=== PATIENT | female | born 1975 | race Native Hawaiian/Other Pacific Islander ===

== ENCOUNTER 2016-06-10 22:34 | Inpatient (IN) | payer OTHER ==
[~2016-06-10] VITALS: Ht 157.5 cm; Wt 58.1 kg
[2016-06-10] MEDS ORDERED: HUMALOG100 MG/ML SC (22:47)
[2016-06-10 22:49] VITALS: BP 121/61; TEMP 99.5
[2016-06-11] VITALS (23 sets, daily range): BP systolic 82–120; BP diastolic 44–72; TEMP 97.4–98.9; Ht 157.5 cm; Wt 58.1 kg
[2016-06-11 00:12] LABS: PLATELET COUNT 476 K/uL (152-353)
[2016-06-11 00:22] LABS: POTASSIUM 3.9 mmol/L (3.6-5.2); SODIUM 135 mmol/L (136-145)
[2016-06-11 02:31] LABS: POTASSIUM 3.7 mmol/L (3.6-5.2); SODIUM 139 mmol/L (136-145)
--- NOTE | 2016-06-11 03:15 | NUR ---
RECEIVED 41 Y/O FEMALE FROM ER VIA W/C WITH SL RT RA. PT. PRESENTED TO ER N/V AND PAIN ALL OVER. 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 PUMP BEING CARRIED HOME. PT. ORIENTED TO ICU, AND BATHROOM.
--- NOTE | 2016-06-11 04:50 | NUR ---
DR. HOLLIDAY NOTIFIED AND INFORMED HIM OF NEW ADMISSION, WENT OVEER THE ORDERS, AND TOLD HIM PT. STILL N/V. PT HAD ZOFRAN 4MG AROUND October I REPEAT THE ZOFRAN 4MG X1 IV AND HE ORDERED ZOFRAN 4MG IV X1 NOW.
[2016-06-11 05:02] LABS: POTASSIUM 3.5 mmol/L (3.6-5.2); SODIUM 139 mmol/L (136-145)
--- NOTE | 2016-06-11 05:30 | NUR ---
ASSIST PT TO BR AND VOIDED 450ML AND CARRIED URINE FOR KETONES.
--- NOTE | 2016-06-11 07:30 | NUR ---
FSBS 193,DR MCMAHAN HERE, NEW ORDERS. INSULIN DRIP STOPPED, IV FLUIDS CHANGEDTO NS AT 150/HR AT 0743,INSULI 10 U HUMALOG SQ GIVEN AT [address]S ORDER.
[2016-06-11 07:54] LABS: POTASSIUM 3.3 mmol/L (3.6-5.2); SODIUM 135 mmol/L (136-145)
[2016-06-11 08:08] LABS: PLATELET COUNT 465 K/uL (152-353)
--- NOTE | 2016-06-11 08:45 | NUR ---
REPORT FROM PM STAFF. PT RESTING WITH EYES CLOSED. FAMILY AT BS.
[2016-06-11] MEDS ORDERED: BYSTOLIC5 MG PO (09:56)
[2016-06-11] MEDS ORDERED: DULO60CA2 OR (09:57)
--- NOTE | 2016-06-11 10:20 | NUR ---
FSBS 58, PT GIVEN JUICE & GINGERALE PO FAMILY AT BS.
--- NOTE | 2016-06-11 11:38 | NUR ---
PT TUP TO BATHROOM,VOID & UA TO LAB FOR KETONES.
--- NOTE | 2016-06-11 13:12 | NUR ---
PT RESTING QUIETLY. BS, UP TO 103. PT REMAINS 'WEAK'. DR LANG IN TO VISIT. NEW ORDERS, NS INCREASED TO 250 ML/HG.
--- NOTE | 2016-06-11 14:00 | NUR ---
INSULIN PUMP STOPPED PER ORDER DR LANG. PT RESTING WITH EYES CLOSED.
--- NOTE | 2016-06-11 15:28 | NUR ---
LABS DRAWN & TO LAB. PT UP TO BATHROOM TO VOID. FAMILY AT BS.
--- NOTE | 2016-06-11 16:07 | NUR ---
PT C/O NAUSEA AFTER GOING TO BATHROOM TO VOID. MEDICAYED WITH ZOFRAN 4 MG SIVP GIVEN PER ORDER.
[2016-06-11 16:18] LABS: POTASSIUM 3.9 mmol/L (3.6-5.2); SODIUM 134 mmol/L (136-145)
--- NOTE | 2016-06-11 16:28 | NUR ---
LABS CALLED TO GILBERTO PATTEN RN/MAYA/ DR LANG.
--- NOTE | 2016-06-11 16:54 | NUR ---
PT NAUSEATED & VOMITED SM AMT CL LIQUIDS. DR LANG NOTIFIED.
--- NOTE | 2016-06-11 17:30 | NUR ---
FENTANYL PATCHED REMOVED FROM PT'S BACK PER DR'S ORDERS.
--- NOTE | 2016-06-11 17:38 | NUR ---
PT VOMITED AGAIN SM AMT. PT MEDICATED WITH PHENERAGN IVPB PER DR'S ORDER.
--- NOTE | 2016-06-11 17:43 | NUR ---
FSBS 260, PT REFUSED FULL DOSE SS HUMALOG. PT ALLOWED 4 U SS HUMALOG TO BE GIVEN, PT STATES,'I DROP TOO FAST& I FEEL TERRIBLE'.
--- NOTE | 2016-06-11 18:15 | NUR ---
EDGARDO OBTAINED FROM [facility] TO ENTER PHARMACY TO REMOVE MEDS FOR K+ & PHOSPHORUS DRIPS. CHARGE NURSE GRAY PENALOZA NOTIFIED.
--- NOTE | 2016-06-11 18:33 | NUR ---
PT RESTING ON R SIDE EYES CLOSED, HOB UP.
--- NOTE | 2016-06-11 19:21 | NUR ---
K+ DRIP & K+PHOS DRIP OBTAINED FROM PHAMACY & MIXED. NEITHER WOULD SCAN,PT & MED VERIFIED.
--- NOTE | 2016-06-11 22:05 | NUR ---
PT RESTING QUIETLY. NO N/V NOTED. RECEIVING K PHOS INFUSION AT 41.6 ML/HR VIA PUMP. RECEIVING POTASSIUM 40MG IN 500 ML INFUSING AT 125 ML/HR. PT WITH HEART RATE OF 105. MONITORING PT'S BLOOD SUGAR.
[2016-06-12] VITALS (21 sets, daily range): BP systolic 80–130; BP diastolic 50–75; TEMP 97.2–99.3
--- NOTE | 2016-06-12 00:50 | NUR ---
UNABLE TO TOLERATE TYLENOL 650. STARTED VOMITING CLEAR LIQUIDS UP.
--- NOTE | 2016-06-12 00:58 | NUR ---
PT WAS MEDICATED WITH PHENERGAN 25MG IVPB IN 50 ML OF NS.
--- NOTE | 2016-06-12 04:22 | NUR ---
PT SITTING UP HF. DRY HEAVING. STILL WITH COMPLAINTS OF A HEADACHE. CHANGED IV TUBING AND HUNG NEW BAG OF 100O NS TO INFUSED AT 250 ML/HR. CM WITH SINUS TACH.
--- NOTE | 2016-06-12 05:29 | NUR ---
PT CONTINUES TO VOMIT UP LIQUID SECRETIONS. NS INFUSING AT 250 ML/HR. ZOFRAN 4 MG IVSP GIVEN. BLOOD SUGAR CHECKED.
--- NOTE | 2016-06-12 06:35 | NUR ---
PT UP OUT OF BED TO BATHROOM. LAB DIPESH BLOOD FOR AM LABS.
[2016-06-12 06:45] LABS: PLATELET COUNT 372 K/uL (152-353)
--- NOTE | 2016-06-12 07:00 | NUR ---
REPORT FROM PM STAFF. PT RESTING WITH EYES CLOSED,RR RATE 26,O2 SAT 100% ON RM AIR.
[2016-06-12 07:01] LABS: SODIUM 133 mmol/L (136-145)
--- NOTE | 2016-06-12 07:45 | NUR ---
JENNIFER MURILLO LPN/MAYA FOR DR LANG IN TO SEE PT. REPORTED LABS. PT C/O 'FEELING WEAK'.COLOR SL PALE.
--- NOTE | 2016-06-12 08:40 | NUR ---
DR LANG IN TO SEE PT,REVIEWED LABS,NEW ORDERS.PT USED BEDPAN B/C 'I FEEL WEAK'.
--- NOTE | 2016-06-12 08:48 | NUR ---
FLU SWAB COLLECTED & TO LAB.
--- NOTE | 2016-06-12 09:11 | NUR ---
FSBS,411,LAB NOTIFIED OF NEED FOR BS DRAW. FAMILY AT BS.
--- NOTE | 2016-06-12 09:18 | NUR ---
PT MEDICATED WOTH SODIUM BICARB [address] POWELL. LAB IN FOR BLOOD DRAW.RADIOLOGY IN FOR CXR.
--- NOTE | 2016-06-12 09:38 | NUR ---
DR LANG NOTIFIED OF PT'S BS & INSULIN GIVEN.
--- NOTE | 2016-06-12 09:54 | NUR ---
PT VOMITED X 1 SM AMT CL LIQUIDS.ASSISTED TO CHANGE GOWN.
--- NOTE | 2016-06-12 10:51 | NUR ---
PT MEDICATE FOR NAUSEA WITH PHENERGAN 25MG IVPB. PT VOMITED SM AMT CL LIQUID.
--- NOTE | 2016-06-12 11:49 | NUR ---
DR LANG BACK IN TO SEE PT. NEW ORDERS.
--- NOTE | 2016-06-12 13:30 | NUR ---
PT UP TO BSC TO VD. FAMILY AT BS.
--- NOTE | 2016-06-12 14:00 | NUR ---
PT ON SIDE WITH EYES CLOSED. FAMILY AT .
--- NOTE | 2016-06-12 15:05 | NUR ---
LABS DRAWN, UA COLLECTED & TO LAB. PT DENIES NAUSEA. HAS KEPT 2 CUPS OF 'ICE & WATER DOWN' WITHOUT VOMITING.
[2016-06-12 15:49] LABS: POTASSIUM 3.5 mmol/L (3.6-5.2); SODIUM 135 mmol/L (136-145)
--- NOTE | 2016-06-12 16:15 | NUR ---
LABREPORTS TO DR LANG. NEW ORDERS.
--- NOTE | 2016-06-12 16:30 | NUR ---
PT MEDICATED WITH TORADOL 30 MG IVP FOR LANG #6 ON PAIN SCALE.NS DECREASED TO 100 ML/HR.PT C/O SL NAUSEA & BURNING IN ESOPHAGUS,MEDICATED WITH ZOFRAN 4MGIVP & GI COCKTAIL 30 ML.
--- NOTE | 2016-06-12 19:46 | NUR ---
PT IN ICU BED A. PT IN WITH DKA. BLOOD SUGARS BEING MONITORED. CM WITH SINUS TACH AT 114. PT VISITING WITH HER BOYFRIEND. NS INFUSING AT 100 ML/HR. PT TOLERATING PO ICE CHIPS AND POPSICKLES.
--- NOTE | 2016-06-12 20:00 | NUR ---
PT VOMITING. VOMITS CLEAR LIQUIDS BACK UP AFTER DRINKING WATER. PT STATES "i AM SO THRISTY." AT BEDSIDE. BLOOD SUGARS BEING MONITORED.
[2016-06-12 20:25] LABS: POTASSIUM 3.1 mmol/L (3.6-5.2); SODIUM 134 mmol/L (136-145)
--- NOTE | 2016-06-12 20:31 | NUR ---
LAB RESULTS BACK. PT RESTING QUIETLY.
--- NOTE | 2016-06-12 20:57 | NUR ---
Dalia CRISTINA RN REPORTED LAB RESULTS TO DR. LANG. NEW ORDERS RECEIVED.
--- NOTE | 2016-06-12 21:18 | NUR ---
RESP HERE AT BEDSIDE TO DRAW ABG.
[2016-06-13] VITALS (21 sets, daily range): BP systolic 88–135; BP diastolic 54–85; TEMP 97–98.6
[2016-06-13 01:29] LABS: POTASSIUM 2.9 mmol/L (3.6-5.2); SODIUM 138 mmol/L (136-145)
[2016-06-13 02:55] LABS: POTASSIUM 2.5 mmol/L (3.6-5.2); SODIUM 136 mmol/L (136-145)
[2016-06-13 04:30] LABS: PLATELET COUNT 385 K/uL (152-353)
[2016-06-13 04:42] LABS: POTASSIUM 2.5 mmol/L (3.6-5.2); SODIUM 136 mmol/L (136-145)
--- NOTE | 2016-06-13 04:51 | NUR ---
XRAY HERE TO TAKE PT FOR CAT W/O CONTRAST OF THE BRAIN. PT HAS BEEN VOMITING THROUGHOUT THE NIGHT. PT HAS BEEN HAVING HEADACHES, VOMITING, AND NAUSEA.
--- NOTE | 2016-06-13 05:10 | NUR ---
PT HAS RESTED MORE THIS SHIFT THAN PRIOR PM. STILL COMPLAINS OF NAUSEA. ZOFRAN MORE EFFECTIVE THIS SHIFT.
--- NOTE | 2016-06-13 06:30 | NUR ---
DR MCMAHAN HERE AT BEDSIDE. NEW ORDERS D5NS TO INFUSE AT 75 AND INSULIN DRIP TO INFUSE AT 2UNITS/2ML PER HOUR. PT COMPLAINED OF HEADACHE. TORDAOL 30 MG IVSP GIVEN. PT REFUSED FENTANYL PATCH. UA COLLECTED AND SENT TO LAB. BLOOD DRAWN PER Shalini CRISTINA RN AND SENT TO LAB.
[2016-06-13 06:53] LABS: POTASSIUM 2.6 mmol/L (3.6-5.2); SODIUM 136 mmol/L (136-145)
--- NOTE | 2016-06-13 06:58 | NUR ---
NEW ORDERS RECEIVED FROM DR. SMITH. IVF'S D5NS INFUSING AT 150ML AND INSULIN DRIP INCREASED TO 10 ML/HR. LARGE AMOUNT OF ACETONE IN URINE PER LAB RESULTS.
--- NOTE | 2016-06-13 07:02 | NUR ---
PT REFUSED FENTANYL PATCH. PATCH RETURNED TO OMNICELL.
--- NOTE | 2016-06-13 07:30 | NUR ---
AM ASSESSMENT DONE. DR. MCMAHAN HERE. NEW ORDERS RECEIVED. PT VOMITING. WILL MEDICATE WITH PHENERGAN.
--- NOTE | 2016-06-13 08:30 | NUR ---
LABS DRAWN. ASSISTED PT UP TO BSC. PT VOIDED. SPECIMEN COLLECTED AND SENT TO THE LAB.
--- NOTE | 2016-06-13 09:00 | NUR ---
FSBS 78. INSULIN DRIP DECREASED TO 8U/HR.
[2016-06-13 09:22] LABS: SODIUM 136 mmol/L (136-145)
[2016-06-13 09:23] LABS: POTASSIUM 2.4 mmol/L (3.6-5.2)
--- NOTE | 2016-06-13 09:30 | NUR ---
DR. MCMAHAN CALLED TO CHECK ON PT. NEW ORDERS RECEIVED. NS INCREASED TO 250ML/HR. WILL CONTINUE TO MONITOR.
--- NOTE | 2016-06-13 10:43 | NUR ---
DR. LANG CALLED TO CHECK ON PT. NEW ORDERS RECEIVED.
--- NOTE | 2016-06-13 11:16 | NUR ---
PT RESTING QUIETLY WITH EYES CLOSED. FAMILY AT BEDSIDE. WILL CONTINUE TO MONITOR.
--- NOTE | 2016-06-13 11:50 | NUR ---
DR. LANG HERE TO SEE PT.
--- NOTE | 2016-06-13 11:55 | NUR ---
DR. LANG SPEAKING WITH DR. ARREDONDO AT [facility] IN [place].
--- NOTE | 2016-06-13 14:02 | NUR ---
PT RESTING QUIETLY WITH EYES CLOSED. WILL CONTINUE TO MONITOR.
--- NOTE | 2016-06-13 17:15 | NUR ---
PT ABLE TO TOLERATE TOAST AT THIS TIME. FAMILY AT BS
--- NOTE | 2016-06-13 20:00 | NUR ---
PM ASSESS. COMPLETED. HAS BATHCLOTH ON FOREHEAD AND EYES. STATES HAS BEEN TRYING TO HAVE A H/A AGAIN TODAY. PT HAS INSULIN DRIP @ 8 UNITS/HR GOING TO RT FA WITH 22GA WITHOUT SWELLING OR REDNESS. HAS D5LR @ 250ML HR IN LT FA WITH 20GA NO REDNESS OR SWELLING. HR IN SR, BS + X4. LUNGS CLEAR WITH O2 SAT 100%. GOT UP TO BS COMMODE AND VOID 500ML CLEAR URINE.
--- NOTE | 2016-06-13 20:49 | NUR ---
GLUCOSE 49 SODA GIVEN, AND ATE 1/2 BANANNA.
--- NOTE | 2016-06-13 21:36 | NUR ---
GLUCOSE 79 PK SUGAR GIVEN, DUE TO PT. SAYS SHE HAS HAD SO MANY LIQUIDS UNTIL SHE CANNOT DRINK WITHOUT IT MAKING HER NAUSEATED.
--- NOTE | 2016-06-13 22:20 | NUR ---
OOB TO VOID AND HAD STOOL 3 BALLS ABOUT 3 TO 4 CM IN SIZE.
--- NOTE | 2016-06-13 23:26 | NUR ---
C/O HEADACHE SCALE 6, TORADOL 30MG IN 8ML NS SIVP. GLUCOSE AGAIN @ 2313 WAS 45, PK IF SUGAR GIVEN AND 1/2 BANNANA GIVEN.
[2016-06-14] VITALS (19 sets, daily range): BP systolic 91–131; BP diastolic 51–84; TEMP 97.5–98.8
--- NOTE | 2016-06-14 00:53 | NUR ---
CHECKED BS LESS THAN 30.
--- NOTE | 2016-06-14 01:01 | NUR ---
BLOOD DRAWN AND CARRIED TO LAB. DEXTROSE 12.5 GM GIVEN IVP AND INSULIN DRIP PAUSED AT PRESENT, UNTIL NOTIFY ER PHYSICIAN.
--- NOTE | 2016-06-14 01:06 | NUR ---
DR. KRUEGER NOTIFIED IN ER. GAVE HIM HISTORY OF PT. INFORMING THAT DR. MCMAHAN WANTED TO KEEP INSULIN DRIP @ 8 UNITS/HR. DR. KRUEGER ASKED WHY MARTIR GIVING ORDER, DR. LANG HOSPITALIST. DR. LANG ALLOWED DR. MCMAHAN TO CALL ORDERS REGARDING INSULIN DRIP. DR. KRUEGER ORDERED GO BY PROTOCAL AND CALL HIM BACK AFTER BS DONE IN 30 15 MIN.
--- NOTE | 2016-06-14 01:35 | NUR ---
NOTIFIED DR. KRUEGER NOTIFIED OF MY BLOODSUGAR IS 77 NOW APTER 1/2 OF THE DEXTROSE GIVEN (12.5GMS). WHEN LAB VERIFIED GLUCOSE EARLIER AROUND 1AM I GOT BELOW 30 AND LAB READING WAS 32. NEW ORDERS GIVEN, REPEATED AND VERIFIED. TO START DKA PROTOCAL AFTER TURNING INSULIN DRIP OFF X 1 HR. RECHECK BLOODSUGAR WHICH WAS 77.
--- NOTE | 2016-06-14 02:34 | NUR ---
BLOODSUGAR 98. RESTARTED INSULILN DRIP @ 1.1 (CALCULATION WAS 1.14) ROUNDED OFF TO 1.1 UNITS/HR.
--- NOTE | 2016-06-14 03:00 | NUR ---
PT C/O HEADACHE SCALE 7. TYLENOL 650 MG PO GIVEN.
--- NOTE | 2016-06-14 03:30 | NUR ---
PATIENT STATES " CAN I GET SOMETHING FOR MY ANXIETY, I JUST FEEL REALLY TENSED UP". PRN ATIVAN 0.5 MG IV GIVEN AT THIS TIME ORDERED. WILL REASSESS POST MEDICATION FOR DECREASE IN ANXIETY.
--- NOTE | 2016-06-14 03:44 | NUR ---
BS 188 INCREASED INSULIN DRIP TO 5.12 = 5 UNITS/HR.
--- NOTE | 2016-06-14 04:53 | NUR ---
GLUCOSE 255 INCREASED INSULIN DRIP TO 9.75 = 9.8 UNITS/HR. PT. GOT UP TO USE BS COMMODE TO VOID.
--- NOTE | 2016-06-14 05:00 | NUR ---
DR. KRUEGER NOTIFIED OF D5NS GOING @ 250ML/HR BS IS 255, MAY WE TURN BACK IV FLUIDS. NEW ORDERS GIVEN, REPEATED AND VERIFIED. D5NS DECREASED TO 150ML/HR.
--- NOTE | 2016-06-14 07:03 | NUR ---
LAB IN FOR BLOOD DRAW,IV FLUIDS HELD X 30 MIN PER CHRISTIANA LR RN. PT RESTING IN LOW FOWLERS, EYES CLOSED.
--- NOTE | 2016-06-14 07:40 | NUR ---
LAB IN FOR BLOOD DRAW.FSBS 55, STOPPED INSULIN DRIP.IV FLUIDS RESTARTED AT 150 ML/HR. PT REFUSED TO DRINK JUICE. 1/2 AMP D50 GIVEN IVP PER PROTOCOL.
[2016-06-14 07:54] LABS: PLATELET COUNT 349 K/uL (152-353)
[2016-06-14 08:08] LABS: SODIUM 136 mmol/L (136-145)
--- NOTE | 2016-06-14 08:15 | NUR ---
LAB CALLED WITH LOW K+,LOW PHOS & LOW MAG,TIFFANY IN LAB WILL RE RUN ALL & CALL WITH RESULTS. FSBS 113,RESTARTED INSULIN DRIP@ 1 U/HR.
--- NOTE | 2016-06-14 08:30 | NUR ---
JENNIFER MURILLO LPN/MAYA LANG IN TO SEE PT. REPORTED INITIAL LAB RESULTS & REPORTED LABS REQUEST TO RUN THEM AGAIN.
[2016-06-14 09:34] LABS: POTASSIUM 1.6 mmol/L (3.6-5.2)
--- NOTE | 2016-06-14 09:34 | NUR ---
PHONE CALL TO LAB,REQUESTED COPLETED RERUN OF K+, MAG,PHOSPHORUS. RECEIVED & REPORTED TO JENNIFER MURILLO LP/MAYA FOR DR LANG.
--- NOTE | 2016-06-14 10:50 | NUR ---
IV L WRIST D/C'D CANNULA INTACT ,TENDER AT SITE. NEW IV 20 G INSYTE INSERTED R LATERAL AC X 2 ATTEMPTS.
--- NOTE | 2016-06-14 11:35 | NUR ---
NEW IV 22 G INSYTE INSERTED L WRIST X 1 ATTEMPT.PT RESTING ON R SIDE. FAMILY AT .
--- NOTE | 2016-06-14 12:30 | NUR ---
PT RESTING WITH EYES CLOSED. DENIES ACUTE PAIN.
--- NOTE | 2016-06-14 14:30 | NUR ---
PT RESTING QUIETLY WITH EYES CLOSED. AWAKENS EASILY, ASITED WITH BATH PER FAMILY.LINEN CHANGE. PT STARTED HER PERIOD.DENIES ACUTE PAIN.
--- NOTE | 2016-06-14 16:30 | NUR ---
PT RESTING ON SIDE WITH EYES CLOSED.COLOR PINK,SKIN W/D.
--- NOTE | 2016-06-14 18:33 | NUR ---
PT C/O NAUSEA,MEDICATED WITH ZOFRAN [address] ORDER.
--- NOTE | 2016-06-14 20:00 | NUR ---
PM ASSESS. COMPLETED. PT. LOOKING BRIGHTER EYED EVEN THOUGH I CAN TELL SHE DOES NOT FEEL GOOD. PT. MOTHER @ BS. PT. MOTHER THANKED ME FOR CARING FOR HER DAUGHTER LAST NIGHT.
--- NOTE | 2016-06-14 20:32 | NUR ---
PT. MOTHER TALKED DAUGHTER INTO GETTING SOME ATIVAN ORDERED, 0.5 MG GIVEN IVP. PT. REALLY NEEDED IT, SHE HAS BEEN SO RESTLESS, BEEN STUCK HOURLY AND GETTING UP PER BS COMMODE. PT. WAS BEGGING HER MOM NOT TO LEAVE HER. I TOLD HER I WILL BE HERE TONIGHT AGAIN, IF YOU WANT ME TO I WILL BE MORE THAN GLAD TO CALL YOUR MOM.
[2016-06-14 22:13] LABS: SODIUM 137 mmol/L (136-145)
[2016-06-14 22:26] LABS: POTASSIUM 2.1 mmol/L (3.6-5.2)
--- NOTE | 2016-06-14 22:30 | NUR ---
DR. LANG NOTIED OF PT. CRITICALS PLUS BUN BEING 0. NEW ORDERS GIVEN, REPEATED AND VERIFIED.
--- NOTE | 2016-06-14 23:30 | NUR ---
NOTIFIED OUR PHARMACIST JUAN OF ORDER K PHOS AND PT. CRITICALS, AND INSTRUCTIONS GIVEN.
[2016-06-15] VITALS (15 sets, daily range): BP systolic 89–148; BP diastolic 56–91; TEMP 98.1–98.6
--- NOTE | 2016-06-15 00:25 | NUR ---
K ERIK MIXED AND HUNG ACCORDING TO KARYN AMARAL (BOTH NURSES MIXED).
--- NOTE | 2016-06-15 02:00 | NUR ---
PT. RESTING MUCH BETTER TONIGHT. SHE NEEDED THE ATIVAN. BS HAS REMAINED BETWEEN 103 AND 131 TONIGHT.
--- NOTE | 2016-06-15 03:24 | NUR ---
PT. JUMPED WHEN I DID FINGERSTICK THIS TIME.
--- NOTE | 2016-06-15 05:53 | NUR ---
PT HAS REMAINED SLEEPING MOST OF THE NIGHT, EXCEPT WHEN UP TO BS COMMODE, AND FINGER STICKS. PT. HAS NOT C/O OF H/A ALL NIGHT.
--- NOTE | 2016-06-15 06:30 | NUR ---
Surendra VALENCIA INFUSED, FOLLOW UP IN 2 HRS WITH LABS.
--- NOTE | 2016-06-15 07:45 | NUR ---
AM ASSESSMENT COMPLETE
--- NOTE | 2016-06-15 08:00 | NUR ---
AM LAB DRAW
[2016-06-15 08:12] LABS: SODIUM 138 mmol/L (136-145)
[2016-06-15 08:16] LABS: POTASSIUM 2.3 mmol/L (3.6-5.2)
[2016-06-15 08:27] LABS: PLATELET COUNT 357 K/uL (152-353)
--- NOTE | 2016-06-15 11:05 | NUR ---
FAMILY AT BS
--- NOTE | 2016-06-15 11:10 | NUR ---
DR LOZANO AT BS
--- NOTE | 2016-06-15 13:00 | NUR ---
PT HAS HER INSULIN PUMP. SET UP AND READY TO GO. CLEANED AREA TO ABD. INSERTED AND SECURED NEEDLE INSULIN PUMP STARTED AT 1 UNIT HR. DISCONTINUED INSULIN DRIP. FAMILY AT BEDSIDE PT TOOK A FEW BITES FOOD FROM OUTSIDE CHICKEN WINGS, BECAME NAUSEATED, NO EMESIS, RECIEVED ZOFRAN EARLIER.
--- NOTE | 2016-06-15 15:40 | NUR ---
RESTING QUIETLY INSULIN PUMP HUMALOG AT 1 UNIT HR INFUSING. CHECKED BLOOD SUGAR 183, REPORT TO PT SHE SET SLIDING SCALE ON HER PUMP AND RECIEVED 2 UNITS HUMALOG. INSULIN PUMP CONTINUES TO GIVE 1 UNIT HR. IV FLUIDS INFUSING ORDERED. BEGAN POTASSIUM RIDER.
--- NOTE | 2016-06-15 17:00 | NUR ---
DAUGHTER IN BED W/PT. MOM AT BS. PT AWAKE. NO C/O AT THIS TIME
--- NOTE | 2016-06-15 19:40 | NUR ---
AWAKE AND ALERT. PT STATES SHE FEELS MUCH BETTER. VOICES NO COMPLAINTS AT THIS TIME.
--- NOTE | 2016-06-15 19:43 | NUR ---
TO BEDSIDE COMMODE.
--- NOTE | 2016-06-15 23:50 | NUR ---
ATIVAN 0.5MG IV FOR REST GIVEN.
[2016-06-16] VITALS (8 sets, daily range): BP systolic 96–125; BP diastolic 56–73; TEMP 97.7–98.9
--- NOTE | 2016-06-16 00:48 | NUR ---
PT RESTING QUIETLY PAST ATIVAN.
--- NOTE | 2016-06-16 01:24 | NUR ---
PT RESTING QUIETLY. NOT DISTURBED.
--- NOTE | 2016-06-16 03:00 | NUR ---
PT AWAKENED FOR BS CHECK. BS 80. PT EATING OATMEAL PIE TO PREVENT DROP IN BS. SHE STATES I USUALLY START FALLING ABOUT THIS TIME. THIS IS WHY I REQUESTED TO BE CHECKED.
--- NOTE | 2016-06-16 06:10 | NUR ---
LABS DRAWN. TO LAB
[2016-06-16 06:33] LABS: PLATELET COUNT 353 K/uL (152-353)
[2016-06-16 06:51] LABS: POTASSIUM 2.6 mmol/L (3.6-5.2); SODIUM 143 mmol/L (136-145)
--- NOTE | 2016-06-16 07:45 | NUR ---
PT ASLEEP. WILL CONTINUE TO MONITOR.
--- NOTE | 2016-06-16 08:50 | NUR ---
PT ASLEEP WILL HOLD BREAKFAST TRAY.
--- NOTE | 2016-06-16 09:00 | NUR ---
AM ASSESSMENT DONE. FAMILY AT BEDSIDE. PT STATED SHE FELT BETTER JUST TIRED FEELING.
--- NOTE | 2016-06-16 09:15 | NUR ---
PT SITTING UP EATING BREAKFAST.
--- NOTE | 2016-06-16 10:05 | NUR ---
PT GETTING A BATH. NAD NOTED AT THIS TIME.
--- NOTE | 2016-06-16 10:17 | NUR ---
FSBS 91. PT'S INSULIN PUMP IS AT 1UNIT/HR. PT STATED SHE WOULD KEEP IT AT 1UNIT/HR. PT SITTING UP IN CHAIR. FAMILY AT BEDSIDE. FAMILY WASHING PT'S HAIR.
--- NOTE | 2016-06-16 10:44 | NUR ---
VISITORS AT BEDSIDE. NAD NOTED AT THIS TIME.
--- NOTE | 2016-06-16 11:13 | NUR ---
DR. LANG HERE TO SEE PT.
--- NOTE | 2016-06-16 14:22 | NUR ---
PT VISITING WITH FAMILY. NAD NOTED AT THIS TIME.
--- NOTE | 2016-06-16 15:21 | NUR ---
PT TRANSFERRED TO ROOM 1113 VIA WC IN STABLE COND. ORIENTED PT TO ROOM SURROUNDINGS. FAMILY AT BEDSIDE.
--- NOTE | 2016-06-16 15:45 | NUR ---
GAVE REPORT TO PATY CASTRO RN.
--- NOTE | 2016-06-16 18:18 | NUR ---
1545 PT TRANSFERED FROM ICU VIA WC PER ICU STAFF. FAMILY WITH PT. PT ASSISTED TO BED. PT AWAKE AND ALERT NO DISTRESS NOTED. PT'S INSULIN PUMP INTACT TO RT ABD. NO PROBLEMS NOTED. WILL CON'T TO MONITOR
[2016-06-17 00:35] VITALS: BP 127/85; TEMP 98.7
[2016-06-17 05:39] VITALS: BP 106/74; TEMP 98.2
[2016-06-17 05:51] LABS: POTASSIUM 3.3 mmol/L (3.6-5.2); SODIUM 139 mmol/L (136-145)
[2016-06-17 06:05] LABS: PLATELET COUNT 356 K/uL (152-353)
[2016-06-17 08:00] VITALS: BP 96/59; TEMP 98.1
[2016-06-17 12:25] VITALS: BP 123/72; TEMP 98.6
--- NOTE | 2016-06-17 14:07 | NUR ---
1330 PT LEFT WITH FAMILY AMBULATORY. NO DISTRESS NOTED. 1410 PT LEFT SMALL BAG CONTAINING MEDS IN ROOM. NOTIFIED PT . PT STATED SHE WOULD COME BACK LATER TO GET BAG/MEDS
== END 2016-06-17 12:56 | disposition home or self-care (01) | DRG 639 ==
LOC: ED 22:34 → ICU 06-11 03:09 → MED/SURG 06-16 15:20
PROVIDERS: Emergency Medicine; Internal Medicine; ADMIT Specialist
DX: E13.10 Other specified diabetes mellitus with ketoacidosis without coma (principal); Z79.4 Long term (current) use of insulin; Z96.41 Presence of insulin pump (external) (internal); E11.42 Type 2 diabetes mellitus with diabetic polyneuropathy; E83.42 Hypomagnesemia; E87.6 Hypokalemia; E83.39 Other disorders of phosphorus metabolism; R62.7 Adult failure to thrive
CPT/HCPCS: 36415; 36600; 80048; 80053; 81000; 81002; 82550; 82607; 82728; 82805; 82947; 82948; 82962; 83036; 83540; 83550; 83605; 83735; 84100; 84443; 84484; 85027; 87804; 96361; 96372; 96374; 99285; J0610; J1650; J1815; J1885; J2060; J2405; J3010; J3475; J3480; J3490; J7060

== ENCOUNTER 2016-09-09 12:48 | Emergency (ER) | payer OTHER ==
[~2016-09-09] VITALS: Ht 157.5 cm; Wt 59.0 kg
[~2016-09-09 12:48] MED LIST: BYSTOLIC5 MG PO; DULO60CA2 OR; HUMALOG100 MG/ML SC
[2016-09-09 14:26] VITALS: BP 122/78; TEMP 98.4
== END 2016-09-09 14:26 | disposition home or self-care (01) ==
LOC: ED 12:48
DX: S46.812A Strain of other muscles, fascia and tendons at shoulder and upper arm level, left arm, initial encounter (principal); M77.9 Enthesopathy, unspecified; S63.502A Unspecified sprain of left wrist, initial encounter; W19.XXXA Unspecified fall, initial encounter
CPT/HCPCS: 99283

== ENCOUNTER 2016-09-12 11:42 | Outpatient (CLI) | payer OTHER | END 2016-09-12 19:08 | disposition home or self-care (01) | LOC: LABW 11:42 | DX: D64.89 Other specified anemias (principal); E61.1 Iron deficiency | CPT/HCPCS: 36415; 82607; 82728; 82747; 83540; 83550; 84466 ==

== ENCOUNTER 2016-10-25 13:30 | Outpatient (CLI) | payer OTHER | END 2016-10-25 19:50 | disposition home or self-care (01) | LOC: MAMMO 13:30 | DX: Z12.31 Encounter for screening mammogram for malignant neoplasm of breast (principal) | CPT/HCPCS: G0202-TC ==

== ENCOUNTER 2017-04-04 11:01 | Outpatient (CLI) | payer OTHER | END 2017-04-04 12:10 | disposition home or self-care (01) | LOC: MRI 11:01 | DX: D17.9 Benign lipomatous neoplasm, unspecified (principal) | CPT/HCPCS: 36415; 82565; 84520; A9576 ==

== ENCOUNTER 2017-05-30 12:39 | Outpatient (CLI) | payer OTHER | END 2017-05-30 22:33 | disposition home or self-care (01) | LOC: LAB 12:39 | DX: N89.8 Other specified noninflammatory disorders of vagina (principal); R10.84 Generalized abdominal pain | CPT/HCPCS: 87070; 87086; 87088 ==

== ENCOUNTER 2017-06-18 18:14 | Outpatient (CLI) | payer OTHER | END 2017-06-18 19:20 | disposition home or self-care (01) | LOC: CT 18:14 | DX: N99.820 Postprocedural hemorrhage of a genitourinary system organ or structure following a genitourinary system procedure (principal) | CPT/HCPCS: 82565; 84520; Q9963 ==

== ENCOUNTER 2017-10-09 08:34 | Outpatient (CLI) | payer OTHER | END 2017-10-09 21:26 | disposition home or self-care (01) | LOC: MRI 08:34 | DX: N99.820 Postprocedural hemorrhage of a genitourinary system organ or structure following a genitourinary system procedure (principal) | CPT/HCPCS: 36415; 82565; 84520; A9576 ==

== ENCOUNTER 2018-05-20 08:37 | Outpatient (CLI) | payer OTHER | END 2018-05-20 22:29 | disposition home or self-care (01) | LOC: US 08:37 | DX: R10.2 Pelvic and perineal pain (principal); Z12.31 Encounter for screening mammogram for malignant neoplasm of breast ==

== ENCOUNTER 2019-01-16 08:25 | Outpatient (CLI) | payer OTHER ==
[2019-01-16 09:11] LABS: PLATELET COUNT 397 K/uL (152-353)
[2019-01-16 10:02] LABS: POTASSIUM 4.3 mmol/L (3.6-5.2)
== END 2019-01-16 23:59 | disposition home or self-care (01) ==
LOC: LABW 08:25
PROVIDERS: Physician Assistant
DX: E10.9 Type 1 diabetes mellitus without complications (principal); R00.0 Tachycardia, unspecified; D47.3 Essential (hemorrhagic) thrombocythemia; R53.83 Other fatigue
CPT/HCPCS: 36415; 80053; 83735; 84439; 84443; 85027; 86225; 86235; 86431; 86644; 86645

== ENCOUNTER 2019-02-17 11:34 | Outpatient (CLI) | payer OTHER | END 2019-02-17 23:17 | disposition home or self-care (01) | LOC: LABW 11:34 | DX: M06.4 Inflammatory polyarthropathy (principal); R53.83 Other fatigue; Z79.899 Other long term (current) drug therapy | CPT/HCPCS: 36415; 82784; 84479; 84480; 85651; 86140; 86200; 86317; 86704; 87340; 87522 ==

== ENCOUNTER 2019-05-07 07:28 | Outpatient (CLI) | payer OTHER ==
[2019-05-07 08:26] LABS: POTASSIUM 4.2 mmol/L (3.6-5.2)
== END 2019-05-07 19:44 | disposition home or self-care (01) ==
LOC: CT 07:28
PROVIDERS: Urology
DX: D17.9 Benign lipomatous neoplasm, unspecified (principal)
CPT/HCPCS: 36415; 80053; Q9963

== ENCOUNTER 2019-05-21 13:01 | Outpatient (CLI) | payer OTHER | END 2019-05-21 19:32 | disposition home or self-care (01) | LOC: MAMMO 13:01 | DX: Z12.31 Encounter for screening mammogram for malignant neoplasm of breast (principal) ==

== ENCOUNTER 2019-06-29 08:12 | Outpatient (CLI) | payer OTHER ==
[2019-06-29 09:09] LABS: POTASSIUM 4.2 mmol/L (3.6-5.2)
[2019-06-29 09:50] LABS: PLATELET COUNT 315 K/uL (152-353)
== END 2019-06-29 19:09 | disposition home or self-care (01) ==
LOC: LABW 08:12
PROVIDERS: Nurse Practitioner Family
DX: M05.79 Rheumatoid arthritis with rheumatoid factor of multiple sites without organ or systems involvement (principal); M62.838 Other muscle spasm; Z79.899 Other long term (current) drug therapy; E10.9 Type 1 diabetes mellitus without complications
CPT/HCPCS: 36415; 80053; 83036; 85027; 85651

== ENCOUNTER 2019-08-03 08:15 | Outpatient (CLI) | payer OTHER | END 2019-08-03 19:07 | disposition home or self-care (01) | LOC: US 08:15 | DX: R10.13 Epigastric pain (principal); R11.0 Nausea; R10.12 Left upper quadrant pain ==

== ENCOUNTER 2019-11-16 10:44 | Outpatient (CLI) | payer OTHER ==
[2019-11-16 10:59] LABS: PLATELET COUNT 330 K/uL (152-353)
[2019-11-16 11:17] LABS: POTASSIUM 4.4 mmol/L (3.6-5.2)
== END 2019-11-16 22:05 | disposition home or self-care (01) ==
LOC: LAB 10:44
PROVIDERS: Nurse Practitioner Family
DX: E55.9 Vitamin D deficiency, unspecified (principal); E56.8 Deficiency of other vitamins; M05.79 Rheumatoid arthritis with rheumatoid factor of multiple sites without organ or systems involvement; M62.838 Other muscle spasm; Z79.899 Other long term (current) drug therapy
CPT/HCPCS: 80053; 82306; 85027; 85651; 86140

== ENCOUNTER 2020-04-25 08:30 | Outpatient (CLI) | payer OTHER | END 2020-04-25 19:03 | disposition home or self-care (01) | LOC: US 08:30 | PROVIDERS: ATTEND Urology | DX: N28.89 Other specified disorders of kidney and ureter (principal) ==

== ENCOUNTER 2020-05-17 07:09 | Emergency (ER) | payer OTHER ==
[~2020-05-17] VITALS: Ht 157.5 cm; Wt 63.5 kg
[2020-05-17 07:17] VITALS: TEMP 98.3
[2020-05-17 08:01] LABS: PLATELET COUNT 261 K/uL (152-353)
[2020-05-17 08:07] LABS: POTASSIUM 3.8 mmol/L (3.6-5.2)
[2020-05-17 10:40] VITALS: BP 120/78
== END 2020-05-17 10:40 | disposition home or self-care (01) ==
LOC: ED 07:09
PROVIDERS: Emergency Medicine Emergency Medical Services
DX: E86.0 Dehydration (principal); R11.0 Nausea; U07.1 COVID-19
CPT/HCPCS: 36415; 80053; 81000; 85027; 87635; 96360; 96375; 99284; J1885; J2405; U0003

== ENCOUNTER 2020-05-23 11:24 | Outpatient (CLI) | payer OTHER | END 2020-05-23 19:38 | disposition home or self-care (01) | LOC: RAD 11:24 | PROVIDERS: ATTEND Nurse Practitioner Family | DX: U07.1 COVID-19 (principal); R06.02 Shortness of breath ==

== ENCOUNTER 2020-07-13 09:31 | Day surgery (SDC) | payer OTHER ==
[2020-07-08 09:20] LABS: PLATELET COUNT 381 K/uL (152-353)
[2020-07-08 09:46] LABS: POTASSIUM 4.3 mmol/L (3.6-5.2)
[~2020-07-13] VITALS: Ht 30.5 cm; Wt 0.5 kg
== END 2020-07-13 11:37 | disposition home or self-care (01) ==
LOC: OR 09:31
PROVIDERS: ATTEND Internal Medicine Gastroenterology
PROC: 0DB88ZZ Excision of Small Intestine, Via Natural or Artificial Opening Endoscopic (ICD-10-PCS; principal; 2020-07-13)
PROC: 0DB68ZZ Excision of Stomach, Via Natural or Artificial Opening Endoscopic (ICD-10-PCS; 2020-07-13)
PROC: 0D738ZZ Dilation of Lower Esophagus, Via Natural or Artificial Opening Endoscopic (ICD-10-PCS; 2020-07-13)
DX: K21.00 Gastro-esophageal reflux disease with esophagitis, without bleeding (principal); K22.2 Esophageal obstruction; R13.19 Other dysphagia; K29.50 Unspecified chronic gastritis without bleeding; K25.9 Gastric ulcer, unspecified as acute or chronic, without hemorrhage or perforation; K29.80 Duodenitis without bleeding; K22.4 Dyskinesia of esophagus; R10.12 Left upper quadrant pain; R11.0 Nausea; Z20.828 Contact with and (suspected) exposure to other viral communicable diseases
CPT/HCPCS: 80053; 85027; 87635; J2001; J2704; U0003

== ENCOUNTER 2020-08-12 09:23 | Outpatient (CLI) | payer OTHER | END 2020-08-12 21:36 | disposition home or self-care (01) | LOC: LAB 09:23 | PROVIDERS: ATTEND Internal Medicine Endocrinology, Diabetes & Metabolism | DX: E11.65 Type 2 diabetes mellitus with hyperglycemia (principal) | CPT/HCPCS: 83036 ==

== ENCOUNTER 2020-08-15 07:58 | Outpatient (CLI) | payer OTHER ==
[~2020-08-15] VITALS: Ht 157.5 cm; Wt 64.9 kg
== END 2020-08-15 22:08 | disposition home or self-care (01) ==
LOC: DIABINF 07:58
PROVIDERS: ATTEND Internal Medicine Endocrinology, Diabetes & Metabolism
DX: E10.42 Type 1 diabetes mellitus with diabetic polyneuropathy (principal); Z79.4 Long term (current) use of insulin; I10 Essential (primary) hypertension; K21.9 Gastro-esophageal reflux disease without esophagitis; M06.8A Other specified rheumatoid arthritis, other specified site; N28.89 Other specified disorders of kidney and ureter
CPT/HCPCS: 82948; 96365; 96366; 96521; 99204; J1718; J1815

== ENCOUNTER 2020-08-16 08:02 | Outpatient (CLI) | payer OTHER ==
[~2020-08-16] VITALS: Ht 157.5 cm; Wt 64.9 kg
== END 2020-08-16 20:40 | disposition home or self-care (01) ==
LOC: DIABINF 08:02
PROVIDERS: ATTEND Internal Medicine Endocrinology, Diabetes & Metabolism
DX: E10.42 Type 1 diabetes mellitus with diabetic polyneuropathy (principal); Z79.4 Long term (current) use of insulin; I10 Essential (primary) hypertension; K21.9 Gastro-esophageal reflux disease without esophagitis; M06.8A Other specified rheumatoid arthritis, other specified site; N28.89 Other specified disorders of kidney and ureter
CPT/HCPCS: 82948; 96365; 96366; 96521; 99214; J1718; J1815

== ENCOUNTER 2020-08-22 08:18 | Outpatient (CLI) | payer OTHER ==
[~2020-08-22] VITALS: Ht 157.5 cm; Wt 64.9 kg
== END 2020-08-22 20:41 | disposition home or self-care (01) ==
LOC: DIABINF 08:18
PROVIDERS: ATTEND Internal Medicine Endocrinology, Diabetes & Metabolism
DX: E10.42 Type 1 diabetes mellitus with diabetic polyneuropathy (principal); Z79.4 Long term (current) use of insulin; I10 Essential (primary) hypertension; K21.9 Gastro-esophageal reflux disease without esophagitis; M06.8A Other specified rheumatoid arthritis, other specified site; N28.89 Other specified disorders of kidney and ureter
CPT/HCPCS: 82948; 96365; 96366; 96521; 99214; J1718; J1815

== ENCOUNTER 2020-08-24 07:58 | Outpatient (CLI) | payer OTHER ==
[~2020-08-24] VITALS: Ht 157.5 cm; Wt 64.9 kg
== END 2020-08-24 21:53 | disposition home or self-care (01) ==
LOC: DIABINF 07:58
PROVIDERS: ATTEND Internal Medicine Endocrinology, Diabetes & Metabolism
DX: E10.9 Type 1 diabetes mellitus without complications (principal); Z79.4 Long term (current) use of insulin; E10.42 Type 1 diabetes mellitus with diabetic polyneuropathy; I10 Essential (primary) hypertension; K21.9 Gastro-esophageal reflux disease without esophagitis; M06.8A Other specified rheumatoid arthritis, other specified site; D30.01 Benign neoplasm of right kidney
CPT/HCPCS: 82948; 96365; 96366; 96521; 99214; J1718; J1815

== ENCOUNTER 2020-08-30 07:50 | Outpatient (CLI) | payer OTHER ==
[~2020-08-30] VITALS: Ht 157.5 cm; Wt 64.9 kg
== END 2020-08-30 19:48 | disposition home or self-care (01) ==
LOC: DIABINF 07:50
PROVIDERS: ATTEND Internal Medicine Endocrinology, Diabetes & Metabolism
DX: E10.42 Type 1 diabetes mellitus with diabetic polyneuropathy (principal); Z79.4 Long term (current) use of insulin; I10 Essential (primary) hypertension; K21.9 Gastro-esophageal reflux disease without esophagitis; M06.8A Other specified rheumatoid arthritis, other specified site; D30.01 Benign neoplasm of right kidney
CPT/HCPCS: 82948; 96365; 96366; 96521; 99214; J1718; J1815

== ENCOUNTER 2020-08-31 08:23 | Outpatient (CLI) | payer OTHER ==
[~2020-08-31] VITALS: Ht 157.5 cm; Wt 64.9 kg
== END 2020-08-31 22:37 | disposition home or self-care (01) ==
LOC: DIABINF 08:23
PROVIDERS: ATTEND Internal Medicine Endocrinology, Diabetes & Metabolism
DX: E10.42 Type 1 diabetes mellitus with diabetic polyneuropathy (principal); Z79.4 Long term (current) use of insulin; I10 Essential (primary) hypertension; K21.9 Gastro-esophageal reflux disease without esophagitis; M06.8A Other specified rheumatoid arthritis, other specified site; D30.01 Benign neoplasm of right kidney
CPT/HCPCS: 82948; 96365; 96366; 96521; 99214; J1718; J1815

== ENCOUNTER 2020-09-06 07:58 | Outpatient (CLI) | payer OTHER ==
[~2020-09-06] VITALS: Ht 157.5 cm; Wt 64.9 kg
== END 2020-09-06 19:05 | disposition home or self-care (01) ==
LOC: DIABINF 07:58
PROVIDERS: ATTEND Internal Medicine Endocrinology, Diabetes & Metabolism
DX: E10.42 Type 1 diabetes mellitus with diabetic polyneuropathy (principal); Z79.4 Long term (current) use of insulin; I10 Essential (primary) hypertension; K21.9 Gastro-esophageal reflux disease without esophagitis; M06.9 Rheumatoid arthritis, unspecified; D30.01 Benign neoplasm of right kidney
CPT/HCPCS: 82948; 96365; 96366; 96521; 99214; J1718; J1815

== ENCOUNTER 2020-09-13 08:11 | Outpatient (CLI) | payer OTHER ==
[~2020-09-13] VITALS: Ht 157.5 cm; Wt 64.9 kg
== END 2020-09-13 21:05 | disposition home or self-care (01) ==
LOC: DIABINF 08:11
PROVIDERS: ATTEND Internal Medicine Endocrinology, Diabetes & Metabolism
DX: E10.42 Type 1 diabetes mellitus with diabetic polyneuropathy (principal); Z79.4 Long term (current) use of insulin; I10 Essential (primary) hypertension; K21.9 Gastro-esophageal reflux disease without esophagitis; M06.8A Other specified rheumatoid arthritis, other specified site; D30.01 Benign neoplasm of right kidney
CPT/HCPCS: 82948; 96365; 96366; 96521; 99214; J1718; J1815

== ENCOUNTER 2020-09-13 08:20 | Outpatient (CLI) | payer OTHER ==
[2020-09-13 08:45] LABS: PLATELET COUNT 321 K/uL (152-353)
[2020-09-13 09:25] LABS: POTASSIUM 4.1 mmol/L (3.6-5.2)
== END 2020-09-13 21:05 | disposition home or self-care (01) ==
LOC: LABW 08:20
PROVIDERS: ATTEND Nurse Practitioner Family
DX: E55.9 Vitamin D deficiency, unspecified (principal); E56.8 Deficiency of other vitamins; M05.79 Rheumatoid arthritis with rheumatoid factor of multiple sites without organ or systems involvement; M62.838 Other muscle spasm; M72.0 Palmar fascial fibromatosis [Dupuytren]
CPT/HCPCS: 36415; 80053; 82306; 85027; 85652

== ENCOUNTER 2020-09-20 08:05 | Outpatient (CLI) | payer OTHER ==
[~2020-09-20] VITALS: Ht 157.5 cm; Wt 64.9 kg
== END 2020-09-20 20:58 | disposition home or self-care (01) ==
LOC: DIABINF 08:05
PROVIDERS: ATTEND Internal Medicine Endocrinology, Diabetes & Metabolism
DX: E10.42 Type 1 diabetes mellitus with diabetic polyneuropathy (principal); Z79.4 Long term (current) use of insulin; I10 Essential (primary) hypertension; K21.9 Gastro-esophageal reflux disease without esophagitis; M06.8A Other specified rheumatoid arthritis, other specified site; D30.01 Benign neoplasm of right kidney
CPT/HCPCS: 82948; 96365; 96366; 96521; 99214; J1718; J1815

== ENCOUNTER 2020-09-27 08:22 | Outpatient (CLI) | payer OTHER ==
[~2020-09-27] VITALS: Ht 157.5 cm; Wt 64.9 kg
== END 2020-09-27 20:14 | disposition home or self-care (01) ==
LOC: DIABINF 08:22
PROVIDERS: ATTEND Internal Medicine Endocrinology, Diabetes & Metabolism
DX: E10.42 Type 1 diabetes mellitus with diabetic polyneuropathy (principal); Z79.4 Long term (current) use of insulin; I10 Essential (primary) hypertension; K21.9 Gastro-esophageal reflux disease without esophagitis; M06.8A Other specified rheumatoid arthritis, other specified site; D30.01 Benign neoplasm of right kidney
CPT/HCPCS: 82948; 96365; 96366; 96521; 99214; J1718; J1815

== ENCOUNTER 2020-10-04 08:09 | Outpatient (CLI) | payer OTHER ==
[~2020-10-04] VITALS: Ht 157.5 cm; Wt 64.9 kg
== END 2020-10-04 19:41 | disposition home or self-care (01) ==
LOC: DIABINF 08:09
PROVIDERS: ATTEND Internal Medicine Endocrinology, Diabetes & Metabolism
DX: E10.42 Type 1 diabetes mellitus with diabetic polyneuropathy (principal); Z79.4 Long term (current) use of insulin; I10 Essential (primary) hypertension; K21.9 Gastro-esophageal reflux disease without esophagitis; M06.8A Other specified rheumatoid arthritis, other specified site; N28.89 Other specified disorders of kidney and ureter; E11.65 Type 2 diabetes mellitus with hyperglycemia
CPT/HCPCS: 82948; 96365; 96366; 96521; 99214; J1815; J1817

== ENCOUNTER 2020-10-18 08:02 | Outpatient (CLI) | payer OTHER ==
[~2020-10-18] VITALS: Ht 157.5 cm; Wt 64.9 kg
== END 2020-10-18 19:31 | disposition home or self-care (01) ==
LOC: DIABINF 08:02
PROVIDERS: ATTEND Internal Medicine Endocrinology, Diabetes & Metabolism
DX: E10.42 Type 1 diabetes mellitus with diabetic polyneuropathy (principal); Z79.4 Long term (current) use of insulin; I10 Essential (primary) hypertension; K21.9 Gastro-esophageal reflux disease without esophagitis; M06.8A Other specified rheumatoid arthritis, other specified site; D30.01 Benign neoplasm of right kidney
CPT/HCPCS: 82948; 96365; 96366; 96521; J1815; J1817

== ENCOUNTER 2021-01-17 09:38 | Emergency (ER) | payer OTHER ==
[~2021-01-17] VITALS: Ht 157.5 cm; Wt 65.8 kg
[2021-01-17 09:38] VITALS: BP 143/77; TEMP 98.4
== END 2021-01-17 10:38 | disposition home or self-care (01) ==
LOC: ED 09:38
DX: E11.649 Type 2 diabetes mellitus with hypoglycemia without coma (principal)
CPT/HCPCS: 82948; 96374; 96375; 99284; J2405

== ENCOUNTER 2022-04-24 16:02 | Outpatient (CLI) | payer OTHER ==
[2022-04-24 16:27] LABS: PLATELET COUNT 322 K/uL (152-353)
[2022-04-24 16:46] LABS: POTASSIUM 3.7 mmol/L (3.6-5.2)
== END 2022-04-24 20:18 | disposition home or self-care (01) ==
LOC: LAB 16:02
PROVIDERS: ATTEND Nurse Practitioner Family
DX: E10.42 Type 1 diabetes mellitus with diabetic polyneuropathy (principal); E16.2 Hypoglycemia, unspecified; E83.42 Hypomagnesemia; Z79.4 Long term (current) use of insulin; D47.3 Essential (hemorrhagic) thrombocythemia; R00.0 Tachycardia, unspecified; R63.5 Abnormal weight gain; K21.9 Gastro-esophageal reflux disease without esophagitis; M06.342 Rheumatoid nodule, left hand; M06.341 Rheumatoid nodule, right hand; D64.89 Other specified anemias; N28.89 Other specified disorders of kidney and ureter; E04.1 Nontoxic single thyroid nodule
CPT/HCPCS: 80053; 80061; 82306; 82607; 83036; 83540; 83735; 84439; 84443; 85027

== ENCOUNTER 2022-07-26 07:53 | Outpatient (CLI) | payer OTHER | END 2022-07-26 22:24 | disposition home or self-care (01) | LOC: LABW 07:53 | PROVIDERS: ATTEND Internal Medicine Endocrinology, Diabetes & Metabolism | DX: E10.65 Type 1 diabetes mellitus with hyperglycemia (principal); E10.42 Type 1 diabetes mellitus with diabetic polyneuropathy; Z13.29 Encounter for screening for other suspected endocrine disorder; R79.89 Other specified abnormal findings of blood chemistry | CPT/HCPCS: 36415; 80048; 82043; 82570; 82607; 83036; 83735; 83970; 84443; 84681; 86376 ==

== ENCOUNTER 2022-10-30 12:09 | Outpatient (CLI) | payer OTHER | END 2022-10-30 21:58 | disposition home or self-care (01) | LOC: LAB 12:09 | PROVIDERS: ATTEND Pediatrics | DX: E10.9 Type 1 diabetes mellitus without complications (principal) | CPT/HCPCS: 83036 ==

== ENCOUNTER 2022-11-16 07:30 | Outpatient (CLI) | payer OTHER ==
[2022-11-16 08:14] LABS: POTASSIUM 3.9 mmol/L (3.6-5.2)
[2022-11-16 08:34] LABS: PLATELET COUNT 358 K/uL (152-353)
== END 2022-11-16 18:52 | disposition home or self-care (01) ==
LOC: LABW 07:30
PROVIDERS: ATTEND Nurse Practitioner Family
DX: E55.9 Vitamin D deficiency, unspecified (principal); M05.79 Rheumatoid arthritis with rheumatoid factor of multiple sites without organ or systems involvement; M62.838 Other muscle spasm; M72.0 Palmar fascial fibromatosis [Dupuytren]; Z79.899 Other long term (current) drug therapy
CPT/HCPCS: 36415; 80053; 82306; 85027; 85652; 86140

== ENCOUNTER 2023-02-11 12:56 | Outpatient (CLI) | payer OTHER ==
[2023-02-11 13:30] LABS: PLATELET COUNT 331 K/uL (152-353)
[2023-02-11 13:33] LABS: POTASSIUM 3.7 mmol/L (3.6-5.2)
== END 2023-02-11 19:09 | disposition home or self-care (01) ==
LOC: RAD 12:56
PROVIDERS: ATTEND Internal Medicine
DX: E55.9 Vitamin D deficiency, unspecified (principal); E56.8 Deficiency of other vitamins; M05.79 Rheumatoid arthritis with rheumatoid factor of multiple sites without organ or systems involvement; M06.4 Inflammatory polyarthropathy; Z79.899 Other long term (current) drug therapy; M62.838 Other muscle spasm
CPT/HCPCS: 36415; 80053; 82306; 85027; 85652; 86140